=== PATIENT | male | born 1940 | race Caucasian/White ===

== ENCOUNTER 2017-04-13 15:53 | Inpatient (IN) | payer MEDICARE, MEDICAID | END 2017-05-02 16:00 | DRG 92 | LOC: D.PSYCH 15:53 | DX: S06.9X0S Unspecified intracranial injury without loss of consciousness, sequela (principal); F01.51 Vascular dementia, unspecified severity, with behavioral disturbance; R45.851 Suicidal ideations; V89.2XXS Person injured in unspecified motor-vehicle accident, traffic, sequela; K21.9 Gastro-esophageal reflux disease without esophagitis; G89.29 Other chronic pain; K59.09 Other constipation; F41.8 Other specified anxiety disorders; Z74.09 Other reduced mobility; E55.9 Vitamin D deficiency, unspecified; S52.91XD Unspecified fracture of right forearm, subsequent encounter for closed fracture with routine healing; S62.300A Unspecified fracture of second metacarpal bone, right hand, initial encounter for closed fracture; S62.302A Unspecified fracture of third metacarpal bone, right hand, initial encounter for closed fracture; W19.XXXA Unspecified fall, initial encounter; Z72.0 Tobacco use ==

== ENCOUNTER 2017-07-04 21:17 | Emergency (ER) | payer MEDICARE ==
[2017-04-17 14:59] VITALS: BMI 31.3
[~2017-07-04 21:17] MED LIST: HYDROCODONE-APA1 TAB PO; LEXAPRO20 MG PO; LINZESS145 MCG PO; MEGACE40 MG PO; MIRALAX17 GM PO; PROTONIX40 MG PO; SEROQUEL25 MG PO; VITAMIN D5000 UNIT PO; ZOFRAN ODT4 MG/UDTAB PO
== END 2017-07-05 | disposition home or self-care (01) ==
LOC: D.ER 21:17
DX: S12.110A Anterior displaced Type II dens fracture, initial encounter for closed fracture (principal); W19.XXXA Unspecified fall, initial encounter; Y93.89 Activity, other specified; Y92.019 Unspecified place in single-family (private) house as the place of occurrence of the external cause; F03.90 Unspecified dementia, unspecified severity, without behavioral disturbance, psychotic disturbance, mood disturbance, and anxiety; Z91.81 History of falling; L50.9 Urticaria, unspecified; K21.9 Gastro-esophageal reflux disease without esophagitis

== ENCOUNTER 2017-11-05 22:47 | Emergency (ER) | payer MEDICARE ==
[~2017-11-05] VITALS: Ht 170.2 cm; Wt 81.8 kg
[2017-11-05 22:49] VITALS: Ht 170.2 cm; Wt 81.8 kg
[2017-11-05] MEDS ORDERED: VISTARIL25 MG (22:52)
[2017-11-05] MEDS ORDERED: CARDIZEM60 MG PO (22:52)
[2017-11-05] MEDS ORDERED: ADVIL200 MG (22:53)
[2017-11-05] MEDS ORDERED: VITAMIN B-1000 MCG/M SQ (22:54)
[2017-11-05 23:24] LABS: APPEARANCE CLEAR (CLEAR); BILIRUBIN NEGATIVE (NEGATIVE); COLOR YELLOW (YELLOW); GLUCOSE NEGATIVE (NEGATIVE); KETONE NEGATIVE (NEGATIVE); NITRITE NEGATIVE (NEGATIVE); PROTEIN NEGATIVE (NEGATIVE); SPECIFIC GRAVITY 1.005 (1.005-1.020); UROBILINOGEN NORMAL (NORMAL)
[2017-11-05 23:44] LABS: HEMATOCRIT 33.2 % (42.0-54.0); HEMOGLOBIN 11.1 g/dL (13.5-17.5); LYMPHOCYTES 32.5 % (15-50); MCH 29.1 pg (26.0-34.0); MCHC 33.4 g/dL (31.0-37.0); MCV 87.1 fL (80.0-100.0); MEAN PLATELET VOLUME 9.3 fL (7.4-10.4); NEUTROPHILS 57.9 % (40-80); PLATELET COUNT 184 10x3/uL (130-400); RBC 3.81 10x6/uL (4.20-6.10); RDW 14.8 % (11.5-14.5); WBC 4.6 10x3/uL (4.8-10.8)
[2017-11-06 00:04] LABS: ALBUMIN 3.3 g/dL (3.4-5.0); ALKALINE PHOSPHATASE 76 U/L (46-116); ALT (SGPT) 14 U/L (10-68); CALC OSMOLALITY 270 mosm/kg (275-300); CALCIUM 8.4 mg/dL (8.5-10.1); CARBON DIOXIDE 26.5 mmol/L (21.0-32.0); CHLORIDE - SERUM 104 mmol/L (98-107); GLUCOSE 97 mg/dL (74-106); POTASSIUM - SERUM 3.6 mmol/L (3.5-5.1); PROTEIN - SERUM 6.9 g/dL (6.4-8.2); SODIUM 136 mmol/L (136-145); UREA NITROGEN 11 mg/dL (7-18); eGFR NON AFRICAN AMERICAN 77 mL/min (90-120)
[2017-11-06 02:25] VITALS: BP 123/66
== END 2017-11-06 01:19 | disposition home or self-care (01) ==
LOC: D.ER 22:47
PROVIDERS: Family Medicine
DX: S12.111A Posterior displaced Type II dens fracture, initial encounter for closed fracture (principal); W18.30XA Fall on same level, unspecified, initial encounter; Y93.89 Activity, other specified; Y92.129 Unspecified place in nursing home as the place of occurrence of the external cause